=== PATIENT | female | born 1985 | race African-American/Black ===

== ENCOUNTER 2018-02-24 20:46 | Emergency (ER) | payer BC ==
[~2018-02-24] VITALS: Ht 165.1 cm; Wt 72.6 kg
[2018-02-24 21:12] VITALS: BP 167/76
== END 2018-02-25 00:17 | disposition left against medical advice (07) ==
LOC: ER 20:46
DX: I10 Essential (primary) hypertension (principal); Z53.21 Procedure and treatment not carried out due to patient leaving prior to being seen by health care provider